=== PATIENT | female | born 1985 | race Hispanic/Latino ===

== ENCOUNTER 2022-11-02 12:57 | Observation (INO) | payer SELFPAY ==
[2022-11-02 13:28] VITALS: BMI 36.1
[2022-11-02] MEDS ORDERED: hydrALAZINE 20 MG/ML VIAL SLOW IVP PRN (14:17)
[2022-11-02] MEDS: Betamet Acet/Betamet Na Ph 30 MG/5 ML VIAL IM SCH (15:53)
[2022-11-02] MEDS ORDERED: Ondansetron PF 4 MG/2 ML Vial IVP PRN (21:12)
[2022-11-02] MEDS ORDERED: Promethazine HCl 25 MG/ML VIAL IM PRN (21:12)
[2022-11-03 03:40] LABS: Chlamydia by PCR, Vaginal Swab Not Detected (NotDetected); GC by PCR, Vaginal Swab Not Detected (NotDetected); Tric.vaginalis PCR,Vaginal Sw Not Detected (NotDetected)
[2022-11-03] MEDS: Betamet Acet/Betamet Na Ph 30 MG/5 ML VIAL IM SCH (15:45)
[2022-11-06 14:24] LABS: Group B Streptococcus by PCR DETECTED (NotDetected)
== END 2022-11-03 16:48 | disposition home or self-care (01) ==
LOC: CSHLD/OP 12:57 → CSHLD 21:01
PROVIDERS: ADMIT Family Medicine; ATTEND Family Medicine
DX: O34.32 Maternal care for cervical incompetence, second trimester (principal); O99.012 Anemia complicating pregnancy, second trimester; D64.9 Anemia, unspecified; O98.812 Other maternal infectious and parasitic diseases complicating pregnancy, second trimester; B37.31 Acute candidiasis of vulva and vagina; O09.212 Supervision of pregnancy with history of pre-term labor, second trimester; Z79.899 Other long term (current) drug therapy; O14.12 Severe pre-eclampsia, second trimester; Z3A.27 27 weeks gestation of pregnancy
CPT/HCPCS: 87480; 87491; 87510; 87591; 87653; 87660; 87661; 99285; J0702